=== PATIENT | male | born 1940 | race Caucasian/White ===

== ENCOUNTER 2019-01-27 11:22 | Inpatient (IN) | payer BC, OTHER ==
[~2019-01-27] VITALS: Ht 188 cm; Wt 90.0 kg
[2019-01-27 12:13] LABS: BASOPHILS % (AUTO) 0.2 % (0-1); EOSINOPHILS % (AUTO) 0.1 % (0-6); HEMATOCRIT 47.9 % (42.0-52.0); HEMOGLOBIN 16.1 g/dl (14.0-17.9); LYMPHOCYTES # (AUTO) 0.5 X10'3 (1.1-4.8); LYMPHOCYTES % (AUTO) 4.8 % (21-51); MEAN CORPUSCULAR HEMOGLOBIN 34.1 PG (27.0-31.0); MEAN CORPUSCULAR HGB CONC 33.5 g/dL (33.0-36.5); MEAN CORPUSCULAR VOLUME 101.6 FL (78-98); MEAN PLATELET VOLUME 9.5 FL (7.4-10.4); MONOCYTES # (AUTO) 0.6 X10'3 (0-0.9); MONOCYTES % (AUTO) 6.4 % (2-12); NEUTROPHILS # (AUTO) 8.4 X10'3 (1.8-7.7); NEUTROPHILS % (AUTO) 88.5 % (42-75); PLATELET COUNT 129 X10'3 (140-440); RED BLOOD COUNT 4.71 X10'6 (4.70-6.10); RED CELL DISTRIBUTION WIDTH 12.9 % (11.5-14.5); WHITE BLOOD COUNT 9.5 X10'3 (4.5-11.0)
--- NOTE | 2019-01-27 12:23 | NUR ---
pt back from ct
[2019-01-27 12:29] LABS: ALANINE AMINOTRANSFERASE 25 U/L (12-78); ALBUMIN 3.6 G/DL (3.4-5.0); ALKALINE PHOSPHATASE 62 IU/L (46-116); ANION GAP 11 (8-16); ASPARTATE AMINO TRANSFERASE 32 U/L (10-37); BILIRUBIN,TOTAL 1.1 MG/DL (0.1-1.0); BLOOD UREA NITROGEN 12 MG/DL (7-18); BUN/CREATININE RATIO 10.3 (5.4-32.0); CALCIUM 8.8 MG/DL (8.5-10.1); CHLORIDE 99 MMOL/L (99-107); CREATININE 1.16 MG/DL (0.60-1.10); GLUCOSE 102 MG/DL (70-104); POTASSIUM 4.4 MMOL/L (3.5-5.1); SODIUM 133 MMOL/L (135-145); TOTAL CARBON DIOXIDE 22.7 MMOL/L (24-32); TOTAL PROTEIN 7.3 G/DL (6.4-8.2); eGFR 61 ML/MIN
[2019-01-27 12:38] LABS: MAGNESIUM 1.8 MG/DL (1.5-2.4)
[2019-01-27 13:02] LABS: INR 2.3 INR; PROTHROMBIN TIME 22.2 SECONDS (9.0-12.0)
[2019-01-27] MEDS ORDERED: metoprolol tartrate 1mg/ml inj IV ONE (13:20)
[2019-01-27] MEDS ORDERED: metoprolol tartrate 50mg tablet PO ONE (13:20)
--- NOTE | 2019-01-27 13:30 | NUR ---
Dr. Carpio stated to hold off on asif catheter placement due to patients ability to urinate in urinal while laying flat.
[2019-01-27] MEDS ORDERED: ondansetron/PF 4mg/2ml inj IV PRN (13:35)
[2019-01-27] MEDS ORDERED: magnesium Cl slow-release 64mg tablet PO PRN (13:35)
[2019-01-27] MEDS ORDERED: morphine 4 MG/ML inj SYRINge IV PRN (13:35)
[2019-01-27] MEDS ORDERED: magnesium 4gm in 100ml NS 100 ML IV PRN (13:35)
[2019-01-27] MEDS ORDERED: magnesium 2GM in 50ml NS 50 ML IV PRN (13:35)
[2019-01-27] MEDS ORDERED: HYDROcodone/acetaminophen 5mg/325mg tablet PO PRN (13:35)
[2019-01-27] MEDS ORDERED: acetaminophen 325mg tablet PO PRN ×2 (13:35)
[2019-01-27] MEDS ORDERED: potassium Cl 20 mEq SR tablet PO PRN ×2 (13:35)
[2019-01-27] MEDS ORDERED: dextrose 50%-water 50ml dispensing syringe IV PRN (13:35)
[2019-01-27] MEDS ORDERED: potassium Cl 40MEQ/NS 500ml 500 ML IV PRN ×2 (13:35)
[2019-01-27] MEDS ORDERED: mag hydrox/Alum hydrox/simeth 30ml oral suspension PO PRN (13:35)
[2019-01-27] MEDS ORDERED: LORazepam 0.5 MG tablet PO PRN (13:55)
[2019-01-27 13:59] LABS: CLARITY,URINE CLEAR (Clear); COLOR,URINE YELLOW (Yellow); GLUCOSE, URINE NEGATIVE (Neg); KETONES,URINE TRACE mg/dl (Neg); LEUKOCYTE ESTERASE ,URINE NEGATIVE (Neg); NITRITES, URINE NEGATIVE (Neg); OCCULT BLOOD,URINE TRACE-INTACT (Neg); PH,URINE 5.5 (4.8-8.0); PROTEIN,URINE NEGATIVE (Neg); UROBILINOGEN,URINE 0.2 E.U/dL (0.2-1.0)
[2019-01-27 14:00] LABS: UA COLLECTION TYPE URINAL
[2019-01-27 14:09] LABS: BACTERIA,URINE NONE SEEN /HPF (Neg); HYALINE CASTS 0-3 /LPF (NEGATIVE); MUCUS STRANDS NONE SEEN /LPF (Neg); RBC,URINE 0-2 /HPF (0-2); SQUAMOUS EPITHELIAL CELL,UR FEW /LPF (FEW); WBC,URINE 0-4 /HPF (0-4)
[2019-01-27] MEDS: morphine 4 MG/ML inj SYRINge IV PRN ×2 (14:39→21:37)
[2019-01-27] MEDS ORDERED: METO-411 PO (14:41)
[2019-01-27] MEDS ORDERED: LISI10TA4 PO (14:41)
[2019-01-27] MEDS ORDERED: WARF1TAB PO (14:41)
[2019-01-27] MEDS: normal saline 1000ml 1,000 ML IV SCH (14:49)
[2019-01-27] MEDS: nicotine 14mg patch - 24hr TD SCH (15:05)
--- NOTE | 2019-01-27 20:10 | NUR ---
Patient in room PCU 3012. I have received report from Tiffanie SIEGEL and had the opportunity to ask questions and assume patient care.
[2019-01-27] MEDS: metoprolol tartrate 25mg tablet PO SCH (20:17)
[2019-01-27] MEDS: cloNIDine 0.1 mg tablet PO SCH (20:18)
[2019-01-27] MEDS: heparin, porcine 5000 units/ml vial SQ SCH (20:18)
[2019-01-27 20:25] VITALS: BP 171/113
--- NOTE | 2019-01-27 20:25 | NUR ---
Patient arrived to room 3012B via gurney from the ER, all belongings on person. He did have a couple packs of cigarettes and a bus analyst that was placed in the omnicell. Patient oriented to room, call light, plan of care and all questions answered. Vital signs stable, rated pain at 8, requested morphine. Will continue to monitor.
[2019-01-27] MEDS ORDERED: temazepam 15mg capsule PO PRN (21:00)
[2019-01-27 23:00] VITALS: BP 129/91
[2019-01-28 03:00] VITALS: BP 147/99
[2019-01-28] MEDS: normal saline 1000ml 1,000 ML IV SCH ×2 (03:16→16:38)
[2019-01-28] MEDS: morphine 4 MG/ML inj SYRINge IV PRN (04:19)
[2019-01-28] MEDS ORDERED: metoprolol tartrate 1mg/ml inj IV ONE (04:40)
[2019-01-28] MEDS ORDERED: metoprolol tartrate 12.5mg (1/2 tablet) PO SCH (04:40)
[2019-01-28 06:00] VITALS: BP 158/97
--- NOTE | 2019-01-28 06:00 | NUR ---
Problems reprioritized. Patient report given, questions answered & plan of care reviewed with Yaniv SIEGEL.
--- NOTE | 2019-01-28 06:21 | NUR ---
Patient in room PCU 3012. I have received report from Sarah SIEGEL and had the opportunity to ask questions and assume patient care.
[2019-01-28 07:07] LABS: BASOPHILS % (AUTO) 0.2 % (0-1); EOSINOPHILS % (AUTO) 0.2 % (0-6); HEMATOCRIT 47.9 % (42.0-52.0); HEMOGLOBIN 16.4 g/dl (14.0-17.9); LYMPHOCYTES # (AUTO) 0.6 X10'3 (1.1-4.8); MEAN CORPUSCULAR HEMOGLOBIN 34.7 PG (27.0-31.0); MEAN CORPUSCULAR HGB CONC 34.2 g/dL (33.0-36.5); MEAN CORPUSCULAR VOLUME 101.6 FL (78-98); MEAN PLATELET VOLUME 9.6 FL (7.4-10.4); MONOCYTES # (AUTO) 0.8 X10'3 (0-0.9); MONOCYTES % (AUTO) 9.7 % (2-12); NEUTROPHILS # (AUTO) 7.3 X10'3 (1.8-7.7); NEUTROPHILS % (AUTO) 82.9 % (42-75); PLATELET COUNT 131 X10'3 (140-440); RED BLOOD COUNT 4.72 X10'6 (4.70-6.10); RED CELL DISTRIBUTION WIDTH 13.1 % (11.5-14.5); WHITE BLOOD COUNT 8.8 X10'3 (4.5-11.0)
[2019-01-28] MEDS: K and/or MAG REPLACEMENT MC SCH (07:18)
[2019-01-28] MEDS: cloNIDine 0.1 mg tablet PO SCH ×2 (07:23→22:43)
[2019-01-28] MEDS: metoprolol tartrate 25mg tablet PO SCH (07:24)
[2019-01-28] MEDS: lisinopril 10 MG tablet PO SCH (07:26)
[2019-01-28] MEDS: heparin, porcine 5000 units/ml vial SQ SCH ×2 (07:27→22:45)
[2019-01-28 07:28] LABS: ALANINE AMINOTRANSFERASE 23 U/L (12-78); ALBUMIN 3.4 G/DL (3.4-5.0); ALBUMIN/GLOBULIN RATIO 0.9 (1.1-1.5); ALKALINE PHOSPHATASE 57 IU/L (46-116); ANION GAP 10 (8-16); ASPARTATE AMINO TRANSFERASE 43 U/L (10-37); BILIRUBIN,TOTAL 1.3 MG/DL (0.1-1.0); BLOOD UREA NITROGEN 15 MG/DL (7-18); BUN/CREATININE RATIO 12.4 (5.4-32.0); CALCIUM 8.7 MG/DL (8.5-10.1); CHLORIDE 101 MMOL/L (99-107); CREATININE 1.21 MG/DL (0.60-1.10); GLUCOSE 95 MG/DL (70-104); MAGNESIUM 1.8 MG/DL (1.5-2.4); POTASSIUM 4.1 MMOL/L (3.5-5.1); SODIUM 136 MMOL/L (135-145); TOTAL CARBON DIOXIDE 24.8 MMOL/L (24-32); TOTAL PROTEIN 7.4 G/DL (6.4-8.2); eGFR 58 ML/MIN
[2019-01-28] MEDS: nicotine 14mg patch - 24hr TD SCH (07:33)
--- NOTE | 2019-01-28 07:42 | NUR ---
notified by telephone operator chief of pt HR in the 160s. palpated pulse radially, HR 118.
[2019-01-28] MEDS ORDERED: lisinopril 5mg tablet PO SCH (08:00)
[2019-01-28 11:00] VITALS: BP 133/90
--- NOTE | 2019-01-28 13:17 | NUR ---
notified MD of pts heart rate sustaining above 120s. orders received.
[2019-01-28] MEDS ORDERED: diltiazem 5mg/ml 5ml inj. IV ONE (13:20)
[2019-01-28 15:00] VITALS: BP 130/81
--- NOTE | 2019-01-28 16:05 | NUR ---
PAGER ID: [phone] MESSAGE: [phone]. Fabio Harris. pt still AFib with HR in 120s/130s after IV Cardizem push. please advise. Yaniv RN ext [phone]
[2019-01-28] MEDS: diltiazem 5mg/ml 5ml inj. IV PRN (17:18)
[2019-01-28 18:00] VITALS: BP 149/96
--- NOTE | 2019-01-28 18:00 | NUR ---
Patient in room PCU 3013. I have received report from Jarek SIEGEL and had the opportunity to ask questions and assume patient care.
--- NOTE | 2019-01-28 18:30 | NUR ---
Patient in room PCU 3012. I have received report from Meredith Donaldson RN and had the opportunity to ask questions and assume patient care.
[2019-01-28 22:00] VITALS: BP 125/89
[2019-01-28] MEDS: metoprolol tartrate 50mg tablet PO SCH (22:44)
[2019-01-29 02:00] VITALS: BP 128/86
--- NOTE | 2019-01-29 06:00 | NUR ---
Problems reprioritized. Patient report given, questions answered & plan of care reviewed with Luana SIEGEL.
[2019-01-29 06:04] LABS: BASOPHILS % (AUTO) 0.4 % (0-1); EOSINOPHILS % (AUTO) 0.3 % (0-6); HEMATOCRIT 41.7 % (42.0-52.0); HEMOGLOBIN 14.5 g/dl (14.0-17.9); LYMPHOCYTES # (AUTO) 0.6 X10'3 (1.1-4.8); LYMPHOCYTES % (AUTO) 6.9 % (21-51); MEAN CORPUSCULAR HEMOGLOBIN 34.9 PG (27.0-31.0); MEAN CORPUSCULAR HGB CONC 34.7 g/dL (33.0-36.5); MEAN CORPUSCULAR VOLUME 100.6 FL (78-98); MEAN PLATELET VOLUME 9.7 FL (7.4-10.4); MONOCYTES # (AUTO) 0.8 X10'3 (0-0.9); NEUTROPHILS # (AUTO) 6.6 X10'3 (1.8-7.7); NEUTROPHILS % (AUTO) 82.4 % (42-75); PLATELET COUNT 116 X10'3 (140-440); RED BLOOD COUNT 4.15 X10'6 (4.70-6.10); RED CELL DISTRIBUTION WIDTH 12.6 % (11.5-14.5)
[2019-01-29 06:19] LABS: ALANINE AMINOTRANSFERASE 26 U/L (12-78); ALBUMIN/GLOBULIN RATIO 0.9 (1.1-1.5); ALKALINE PHOSPHATASE 50 IU/L (46-116); ANION GAP 8 (8-16); ASPARTATE AMINO TRANSFERASE 48 U/L (10-37); BILIRUBIN,TOTAL 1.7 MG/DL (0.1-1.0); BLOOD UREA NITROGEN 20 MG/DL (7-18); BUN/CREATININE RATIO 15.9 (5.4-32.0); CALCIUM 8.5 MG/DL (8.5-10.1); CHLORIDE 100 MMOL/L (99-107); CREATININE 1.26 MG/DL (0.60-1.10); GLUCOSE 122 MG/DL (70-104); MAGNESIUM 1.9 MG/DL (1.5-2.4); POTASSIUM 3.5 MMOL/L (3.5-5.1); SODIUM 132 MMOL/L (135-145); TOTAL CARBON DIOXIDE 23.7 MMOL/L (24-32); TOTAL PROTEIN 6.4 G/DL (6.4-8.2); eGFR 55 ML/MIN
[2019-01-29 07:00] VITALS: BP 122/78
[2019-01-29] MEDS: K and/or MAG REPLACEMENT MC SCH (07:43)
[2019-01-29] MEDS: lisinopril 10 MG tablet PO SCH (07:55)
[2019-01-29] MEDS: metoprolol tartrate 50mg tablet PO SCH ×2 (07:56→19:30)
[2019-01-29] MEDS: cloNIDine 0.1 mg tablet PO SCH ×2 (07:56→19:30)
[2019-01-29] MEDS: heparin, porcine 5000 units/ml vial SQ SCH ×2 (07:58→18:34)
[2019-01-29] MEDS: nicotine 14mg patch - 24hr TD SCH (07:58)
[2019-01-29] MEDS: diltiazem 5mg/ml 5ml inj. IV PRN (08:29)
[2019-01-29 13:10] VITALS: BP 108/74
[2019-01-29 15:00] VITALS: BP 114/76
[2019-01-29 18:18] VITALS: BP 134/95
--- NOTE | 2019-01-29 18:29 | NUR ---
Problems reprioritized. Patient report given, questions answered & plan of care reviewed with Tiffanie SIEGEL. Patient stable at transfer of care.
[2019-01-29] MEDS: famotidine 20mg tablet PO SCH (20:58)
[2019-01-29 22:00] VITALS: BP 165/68
[2019-01-30] VITALS (16 sets, daily range): BP systolic 74–137; BP diastolic 44–94
[2019-01-30 05:29] LABS: ALANINE AMINOTRANSFERASE 28 U/L (12-78); ALBUMIN 2.8 G/DL (3.4-5.0); ALBUMIN/GLOBULIN RATIO 0.8 (1.1-1.5); ALKALINE PHOSPHATASE 50 IU/L (46-116); ANION GAP 9 (8-16); ASPARTATE AMINO TRANSFERASE 43 U/L (10-37); BILIRUBIN,TOTAL 1.4 MG/DL (0.1-1.0); BLOOD UREA NITROGEN 19 MG/DL (7-18); BUN/CREATININE RATIO 15.3 (5.4-32.0); CALCIUM 8.6 MG/DL (8.5-10.1); CHLORIDE 102 MMOL/L (99-107); CREATININE 1.24 MG/DL (0.60-1.10); GLUCOSE 99 MG/DL (70-104); MAGNESIUM 1.9 MG/DL (1.5-2.4); POTASSIUM 3.6 MMOL/L (3.5-5.1); SODIUM 133 MMOL/L (135-145); TOTAL CARBON DIOXIDE 22.3 MMOL/L (24-32); TOTAL PROTEIN 6.4 G/DL (6.4-8.2); eGFR 57 ML/MIN
[2019-01-30 05:55] LABS: BASOPHILS % (AUTO) 0.3 % (0-1); EOSINOPHILS # (AUTO) 0.1 X10'3 (0-0.9); EOSINOPHILS % (AUTO) 1.1 % (0-6); HEMATOCRIT 42.6 % (42.0-52.0); HEMOGLOBIN 14.5 g/dl (14.0-17.9); LYMPHOCYTES # (AUTO) 0.7 X10'3 (1.1-4.8); LYMPHOCYTES % (AUTO) 11.8 % (21-51); MEAN CORPUSCULAR HEMOGLOBIN 34.4 PG (27.0-31.0); MEAN CORPUSCULAR VOLUME 101.2 FL (78-98); MEAN PLATELET VOLUME 9.7 FL (7.4-10.4); MONOCYTES # (AUTO) 0.7 X10'3 (0-0.9); MONOCYTES % (AUTO) 11.1 % (2-12); NEUTROPHILS # (AUTO) 4.6 X10'3 (1.8-7.7); NEUTROPHILS % (AUTO) 75.7 % (42-75); PLATELET COUNT 120 X10'3 (140-440); RED BLOOD COUNT 4.21 X10'6 (4.70-6.10); RED CELL DISTRIBUTION WIDTH 12.6 % (11.5-14.5); WHITE BLOOD COUNT 6.1 X10'3 (4.5-11.0)
[2019-01-30] MEDS: heparin, porcine 5000 units/ml vial SQ SCH ×2 (06:49→20:23)
[2019-01-30] MEDS ORDERED: BUPIVAcaine/PF 2.5mg/ml (0.25%) 10ml vial ONE (06:56)
[2019-01-30] MEDS ORDERED: ceFAZolin 1000mg inj ONE (06:56)
--- NOTE | 2019-01-30 07:04 | NUR ---
Patient in room PCU 3013. I have received report from alexi youngblood and had the opportunity to ask questions and assume patient care.
[2019-01-30] MEDS: metoprolol tartrate 50mg tablet PO SCH ×2 (07:51→20:23)
[2019-01-30] MEDS: cloNIDine 0.1 mg tablet PO SCH ×2 (07:51→20:23)
[2019-01-30] MEDS: lisinopril 10 MG tablet PO SCH (07:52)
[2019-01-30] MEDS: nicotine 14mg patch - 24hr TD SCH (07:53)
[2019-01-30] MEDS: K and/or MAG REPLACEMENT MC SCH (08:00)
[2019-01-30 09:39] LABS: INR 1.2 INR; PRE OP PARTIAL THROMB. TIME 33 SECONDS (22-32); PROTHROMBIN TIME 12.2 SECONDS (9.0-12.0)
[2019-01-30] MEDS ORDERED: ringers solution, lacted 1,000 ML IV SCH (09:44)
[2019-01-30] MEDS ORDERED: ondansetron/PF 4mg/2ml inj IV PRN (09:45)
[2019-01-30] MEDS ORDERED: morphine 4 MG/ML inj SYRINge IV PRN (09:45)
[2019-01-30] MEDS ORDERED: ketamine 50 mg/ml 10ml vial ONE (09:52)
[2019-01-30] MEDS ORDERED: fentaNYL/PF 50MCG/1 ML 2ML syringe ONE ×2 (09:52→10:07)
[2019-01-30] MEDS ORDERED: midazolam 2 mg/2 ml injection ONE (09:53)
--- NOTE | 2019-01-30 10:28 | NUR ---
Received from OR via , accompanied by DR. MAGAÑA, Anesthesiologist and report given by Anesthesiolgist. S/P RT. HIP PINNING PER DR. DUMONT. PT. ASLEEP. RESPS. EVEN & UNLABORED. IV BOLUS BEGUN PER DR. MAGAÑA FOR BP. RT. HIP BANDAGE DRY & INTACT. RT. ARM IV PATENT. LT. ARM SALINE LOCK INTACT.
--- NOTE | 2019-01-30 10:43 | NUR ---
REPORT TO YAMILE Pena RN .
[2019-01-30] MEDS ORDERED: propofol inj 20 ML IV ONE (10:44)
[2019-01-30] MEDS ORDERED: LIDOcaine 1%/PF 5ML 10 MG/ML VIAL ONE (10:44)
--- NOTE | 2019-01-30 11:28 | NUR ---
Report called to receiving nurse. Transferred via BED, NO Belongings EXCEPT 1 FUZZY BLANKET SENT W/PT TO ROOM [facility], RECEIVING RN AT BEDSIDE TO RECEIVE PT. Special Issues communicated to receiving nurse. YES. Addendum: 01/30/19 at 1150 by Coby Campos RN Amended: Links added.
--- NOTE | 2019-01-30 11:30 | NUR ---
Received report from An SIEGEL in Recovery
[2019-01-30] MEDS: HYDROcodone/acetaminophen 10/325mg tab PO PRN ×2 (14:49→20:22)
--- NOTE | 2019-01-30 15:30 | NUR ---
Noted that patient had not voided since coming back from surgery, so I bladder scanned patient and results were >999ml. Talked to Dr. Haynes, who ordered asif catheter protocol due to acute urinary retention.
--- NOTE | 2019-01-30 16:00 | NUR ---
Asif catheter placed, asif drained 1600ml.
--- NOTE | 2019-01-30 18:25 | NUR ---
Problems reprioritized. Patient report given, questions answered & plan of care reviewed with Yanet SIEGEL.
[2019-01-30] MEDS: famotidine 20mg tablet PO SCH (20:23)
[2019-01-30] MEDS: normal saline 1000ml 1,000 ML IV SCH (20:35)
[2019-01-31 02:00] VITALS: BP 156/91
[2019-01-31] MEDS: HYDROcodone/acetaminophen 10/325mg tab PO PRN (04:05)
[2019-01-31] MEDS: docusate sod 100mg capsule PO PRN ×2 (05:16→19:19)
[2019-01-31 06:00] VITALS: BP 156/91
--- NOTE | 2019-01-31 06:35 | NUR ---
REPORT GIVEN TO ROBBIN BRAVO.
[2019-01-31 06:42] LABS: BASOPHILS % (AUTO) 0.4 % (0-1); EOSINOPHILS # (AUTO) 0.1 X10'3 (0-0.9); EOSINOPHILS % (AUTO) 1.7 % (0-6); HEMATOCRIT 41.6 % (42.0-52.0); LYMPHOCYTES # (AUTO) 0.6 X10'3 (1.1-4.8); LYMPHOCYTES % (AUTO) 8.5 % (21-51); MEAN CORPUSCULAR HEMOGLOBIN 34.1 PG (27.0-31.0); MEAN CORPUSCULAR HGB CONC 33.7 g/dL (33.0-36.5); MEAN PLATELET VOLUME 9.2 FL (7.4-10.4); MONOCYTES # (AUTO) 0.7 X10'3 (0-0.9); MONOCYTES % (AUTO) 9.9 % (2-12); NEUTROPHILS # (AUTO) 5.8 X10'3 (1.8-7.7); NEUTROPHILS % (AUTO) 79.5 % (42-75); PLATELET COUNT 123 X10'3 (140-440); RED BLOOD COUNT 4.12 X10'6 (4.70-6.10); RED CELL DISTRIBUTION WIDTH 12.4 % (11.5-14.5); WHITE BLOOD COUNT 7.3 X10'3 (4.5-11.0)
[2019-01-31 06:47] LABS: ALANINE AMINOTRANSFERASE 26 U/L (12-78); ALBUMIN 2.7 G/DL (3.4-5.0); ALBUMIN/GLOBULIN RATIO 0.7 (1.1-1.5); ALKALINE PHOSPHATASE 47 IU/L (46-116); ANION GAP 9 (8-16); ASPARTATE AMINO TRANSFERASE 31 U/L (10-37); BILIRUBIN,TOTAL 1.2 MG/DL (0.1-1.0); BLOOD UREA NITROGEN 17 MG/DL (7-18); BUN/CREATININE RATIO 16.8 (5.4-32.0); CALCIUM 8.1 MG/DL (8.5-10.1); CHLORIDE 103 MMOL/L (99-107); CREATININE 1.01 MG/DL (0.60-1.10); GLUCOSE 118 MG/DL (70-104); MAGNESIUM 1.6 MG/DL (1.5-2.4); POTASSIUM 3.6 MMOL/L (3.5-5.1); SODIUM 133 MMOL/L (135-145); TOTAL CARBON DIOXIDE 20.8 MMOL/L (24-32); TOTAL PROTEIN 6.4 G/DL (6.4-8.2); eGFR 72 ML/MIN
[2019-01-31] MEDS: nicotine 14mg patch - 24hr TD SCH (08:00)
[2019-01-31] MEDS: K and/or MAG REPLACEMENT MC SCH (08:00)
[2019-01-31] MEDS: metoprolol tartrate 50mg tablet PO SCH ×2 (08:09→19:11)
[2019-01-31] MEDS: cloNIDine 0.1 mg tablet PO SCH ×2 (08:10→19:11)
[2019-01-31] MEDS: lisinopril 10 MG tablet PO SCH (08:10)
[2019-01-31] MEDS: heparin, porcine 5000 units/ml vial SQ SCH ×2 (08:11→19:12)
[2019-01-31] MEDS ORDERED: diltiazem 30mg tablet PO ONE (09:30)
[2019-01-31 10:00] VITALS: BP 144/87
[2019-01-31 14:00] VITALS: BP 133/101
[2019-01-31] MEDS: diltiazem 30mg tablet PO SCH ×2 (15:39→19:11)
--- NOTE | 2019-01-31 18:32 | NUR ---
REPORT REC'D FROM ROBBIN BRAVO.
[2019-01-31 22:00] VITALS: BP 131/73
[2019-01-31] MEDS ORDERED: haloperidol lactate 5mg/ml inj IM PRN (22:35)
[2019-01-31] MEDS ORDERED: LORazepam 2 mg/ml vial IV PRN ×2 (22:35)
[2019-01-31] MEDS ORDERED: thiamine inj. 100 MG in normal saline 100ml IV soln 100 ML IV ONE (22:35)
[2019-02-01] MEDS: folic acid inj. 2 MG, thiamine inj. 100 MG, MVI, adult No.4 with vit. K 10 ML in dextro... IV SCH ×8 (00:36→08:27)
[2019-02-01] MEDS: diltiazem 30mg tablet PO SCH ×4 (01:31→20:46)
[2019-02-01] MEDS: famotidine 20mg tablet PO SCH ×2 (01:32→20:46)
[2019-02-01 06:00] VITALS: BP 135/88
[2019-02-01 06:37] LABS: BASOPHILS % (AUTO) 0.4 % (0-1); EOSINOPHILS # (AUTO) 0.1 X10'3 (0-0.9); EOSINOPHILS % (AUTO) 1.7 % (0-6); HEMATOCRIT 38.7 % (42.0-52.0); HEMOGLOBIN 13.5 g/dl (14.0-17.9); LYMPHOCYTES # (AUTO) 0.6 X10'3 (1.1-4.8); LYMPHOCYTES % (AUTO) 9.3 % (21-51); MEAN CORPUSCULAR HEMOGLOBIN 34.9 PG (27.0-31.0); MEAN CORPUSCULAR HGB CONC 34.8 g/dL (33.0-36.5); MEAN CORPUSCULAR VOLUME 100.5 FL (78-98); MEAN PLATELET VOLUME 9.2 FL (7.4-10.4); MONOCYTES # (AUTO) 0.8 X10'3 (0-0.9); MONOCYTES % (AUTO) 13.1 % (2-12); NEUTROPHILS # (AUTO) 4.7 X10'3 (1.8-7.7); NEUTROPHILS % (AUTO) 75.5 % (42-75); PLATELET COUNT 125 X10'3 (140-440); RED BLOOD COUNT 3.85 X10'6 (4.70-6.10); RED CELL DISTRIBUTION WIDTH 12.6 % (11.5-14.5); WHITE BLOOD COUNT 6.3 X10'3 (4.5-11.0)
--- NOTE | 2019-02-01 06:38 | NUR ---
REPORT GIVEN TO ROBBIN BRAVO.
[2019-02-01 06:51] LABS: ALANINE AMINOTRANSFERASE 23 U/L (12-78); ALBUMIN 2.6 G/DL (3.4-5.0); ALBUMIN/GLOBULIN RATIO 0.7 (1.1-1.5); ALKALINE PHOSPHATASE 48 IU/L (46-116); ANION GAP 11 (8-16); ASPARTATE AMINO TRANSFERASE 27 U/L (10-37); BILIRUBIN,TOTAL 1.1 MG/DL (0.1-1.0); BLOOD UREA NITROGEN 13 MG/DL (7-18); BUN/CREATININE RATIO 13.8 (5.4-32.0); CALCIUM 8.2 MG/DL (8.5-10.1); CHLORIDE 100 MMOL/L (99-107); CREATININE 0.94 MG/DL (0.60-1.10); GLUCOSE 106 MG/DL (70-104); MAGNESIUM 1.7 MG/DL (1.5-2.4); POTASSIUM 3.3 MMOL/L (3.5-5.1); SODIUM 132 MMOL/L (135-145); TOTAL CARBON DIOXIDE 20.8 MMOL/L (24-32); TOTAL PROTEIN 6.1 G/DL (6.4-8.2); eGFR 78 ML/MIN
[2019-02-01] MEDS ORDERED: bisacodyl 10mg suppository rectal RC PRN (07:35)
[2019-02-01] MEDS ORDERED: magnesium hydroxide 30ml (MOM) UD suspension PO PRN (07:35)
[2019-02-01] MEDS: K and/or MAG REPLACEMENT MC SCH (08:00)
[2019-02-01] MEDS: nicotine 14mg patch - 24hr TD SCH ×2 (08:00→08:31)
[2019-02-01] MEDS: cloNIDine 0.1 mg tablet PO SCH ×2 (08:27→20:47)
[2019-02-01] MEDS: metoprolol tartrate 50mg tablet PO SCH ×2 (08:28→20:46)
[2019-02-01] MEDS: lisinopril 10 MG tablet PO SCH (08:28)
[2019-02-01] MEDS: heparin, porcine 5000 units/ml vial SQ SCH ×2 (08:33→20:46)
[2019-02-01 10:00] VITALS: BP 114/72
--- NOTE | 2019-02-01 14:42 | NUR ---
Initial: Pt s/p R hip fracture repair r/t fall prior to admit. Hx etoh started on protocol; pt AOx3 and confused per MD note. PO decreased to 25% meals likely r/t constipation LBM 01/26 6 days; started on colace routinely 01/31. Ensure enlive TIDWM added for additional protein/kcals needs s/p fracture repair; MD and dietary notified. Will monitor for additional bowel care needs post-op. Rec: 1. continue regular diet 2. ensure enlive TIDWM 3. routine bowel care 4. banana bag for etoh 5. wt per rx Addendum: 02/01/19 at [address] Amended: Links added.
[2019-02-01 18:00] VITALS: BP 123/87
[2019-02-01] MEDS: lactose-reduced food (Ensure Enlive) - 237ml bottle PO SCH (18:00)
--- NOTE | 2019-02-01 18:12 | NUR ---
RECEIVED REPORT FROM LAWRENCE SIEGEL AND ASSUMED PATIENT CARE
[2019-02-01] MEDS ORDERED: potassium Cl 40MEQ/NS 500ml 500 ML IV PRN ×2 (21:35)
[2019-02-01] MEDS ORDERED: potassium Cl 20 mEq SR tablet PO PRN (21:35)
[2019-02-01 22:00] VITALS: BP 99/56
[2019-02-01] MEDS: potassium Cl 20 mEq SR tablet PO PRN (22:20)
[2019-02-02] MEDS: diltiazem 30mg tablet PO SCH ×4 (02:18→20:28)
[2019-02-02] MEDS: potassium Cl 20 mEq SR tablet PO PRN (02:18)
[2019-02-02 06:00] VITALS: BP 137/80
--- NOTE | 2019-02-02 06:26 | NUR ---
REPORT GIVEN TO LAWRENCE SIEGEL
[2019-02-02 07:19] LABS: POTASSIUM 4.2 MMOL/L (3.5-5.1)
[2019-02-02] MEDS: nicotine 14mg patch - 24hr TD SCH (08:00)
[2019-02-02] MEDS: lactose-reduced food (Ensure Enlive) - 237ml bottle PO SCH ×3 (08:00→19:00)
[2019-02-02] MEDS: K and/or MAG REPLACEMENT MC SCH (08:00)
[2019-02-02] MEDS: folic acid 1mg tablet PO SCH (08:46)
[2019-02-02] MEDS: metoprolol tartrate 50mg tablet PO SCH ×2 (08:47→20:28)
[2019-02-02] MEDS: multivitamins, therapeutics tablet PO SCH (08:48)
[2019-02-02] MEDS: thiamine 100mg tablet PO SCH (08:49)
[2019-02-02] MEDS: cloNIDine 0.1 mg tablet PO SCH ×2 (08:50→20:29)
[2019-02-02] MEDS: lisinopril 10 MG tablet PO SCH (08:51)
[2019-02-02] MEDS: heparin, porcine 5000 units/ml vial SQ SCH ×2 (09:01→20:29)
[2019-02-02 10:00] VITALS: BP 98/68
[2019-02-02 12:19] LABS: PROTHROMBIN TIME 10.3 SECONDS (9.0-12.0)
[2019-02-02 18:00] VITALS: BP 133/79
[2019-02-02] MEDS: famotidine 20mg tablet PO SCH (20:28)
[2019-02-02] MEDS ORDERED: warfarin 3mg tablet PO ONE (21:00)
[2019-02-02 22:00] VITALS: BP 122/77
[2019-02-02] MEDS ORDERED: LORazepam 2 mg/ml vial IV PRN (22:35)
[2019-02-02] MEDS ORDERED: LORazepam 1 MG tablet PO PRN (22:35)
[2019-02-03] MEDS: diltiazem 30mg tablet PO SCH ×3 (02:00→14:15)
[2019-02-03 02:10] VITALS: BP 97/65
[2019-02-03 06:10] VITALS: BP 104/65
--- NOTE | 2019-02-03 06:30 | NUR ---
I have received patient report from Crystal Burton RN
[2019-02-03 06:37] LABS: MAGNESIUM 2.1 MG/DL (1.5-2.4)
--- NOTE | 2019-02-03 06:39 | NUR ---
Problems reprioritized. Patient report given, questions answered & plan of care reviewed with ROBBIN Williamson.
[2019-02-03 06:47] LABS: PROTHROMBIN TIME 10.2 SECONDS (9.0-12.0)
[2019-02-03] MEDS: K and/or MAG REPLACEMENT MC SCH (08:00)
[2019-02-03] MEDS: thiamine 100mg tablet PO SCH (08:14)
[2019-02-03] MEDS: metoprolol tartrate 50mg tablet PO SCH (08:15)
[2019-02-03] MEDS: lisinopril 10 MG tablet PO SCH (08:15)
[2019-02-03] MEDS: cloNIDine 0.1 mg tablet PO SCH (08:15)
[2019-02-03] MEDS: folic acid 1mg tablet PO SCH (08:15)
[2019-02-03] MEDS: multivitamins, therapeutics tablet PO SCH (08:16)
[2019-02-03] MEDS: heparin, porcine 5000 units/ml vial SQ SCH (08:17)
[2019-02-03] MEDS: lactose-reduced food (Ensure Enlive) - 237ml bottle PO SCH ×2 (08:19→13:00)
[2019-02-03 10:00] VITALS: BP 95/63
--- NOTE | 2019-02-03 12:00 | NUR ---
Patient dressing changed to island dressing.
[2019-02-03] MEDS ORDERED: TRAM50TA2 PO (13:41)
[2019-02-03] MEDS ORDERED: DILT30TA34 PO (13:43)
--- NOTE | 2019-02-03 13:55 | NUR ---
I taught patient all discharge instructions, and his caregiver Michelle if you would see teaching record intervention. The patient had money brought up from [facility] and given to him. He had his wallet and clothes at discharge and was taken out in a wheel chair. Addendum: 02/03/19 at 1711 by Eliane Mai RN parisa left at [phone]
[2019-02-03] MEDS ORDERED: warfarin 5mg tablet PO ONE (21:00)
[2019-02-04] MEDS ORDERED: LORazepam 2 mg/ml vial IV PRN (22:35)
[2019-02-04] MEDS ORDERED: LORazepam 1 MG tablet PO PRN (22:35)
== END 2019-02-03 15:50 | disposition home health service (06) | DRG 481 ==
LOC: ER 11:23 → ED HOLD 13:31 → PCU 3S 20:25 → ORTHO 4S 01-30 11:45
PROVIDERS: ADMIT Internal Medicine; ATTEND Internal Medicine
PROC: 0QH634Z Insertion of Internal Fixation Device into Right Upper Femur, Percutaneous Approach (ICD-10-PCS; principal; 2019-01-30 09:50)
DX: S72.001A Fracture of unspecified part of neck of right femur, initial encounter for closed fracture (principal); D62 Acute posthemorrhagic anemia; F10.10 Alcohol abuse, uncomplicated; F17.210 Nicotine dependence, cigarettes, uncomplicated; I10 Essential (primary) hypertension; D69.6 Thrombocytopenia, unspecified; I25.10 Atherosclerotic heart disease of native coronary artery without angina pectoris; I48.91 Unspecified atrial fibrillation; W18.39XA Other fall on same level, initial encounter; R32 Unspecified urinary incontinence; Z79.01 Long term (current) use of anticoagulants; Z86.12 Personal history of poliomyelitis; Z88.8 Allergy status to other drugs, medicaments and biological substances; Y93.89 Activity, other specified; Y92.89 Other specified places as the place of occurrence of the external cause; Y99.8 Other external cause status; Z71.41 Alcohol abuse counseling and surveillance of alcoholic; Z71.6 Tobacco abuse counseling; Z79.899 Other long term (current) drug therapy
CPT/HCPCS: 99285; Z7506; 36415; 70450; 71045; 73502; 76000; 80053; 81001; 82948; 83735; 83880; 84132; 84484; 85025; 85610; 85730; 87070; 93005; 97110; 97116; 97161; 97530; A6257; A6449; A7000; C1713; G0378; J0690; J1644; J2001; J2250; J2270; J2704; J3010; J3411; J3490; J7030; J7060; J7120